=== PATIENT | female | born 1985 | race Caucasian/White ===

== ENCOUNTER 2025-02-17 22:00 | Emergency (ER) | payer OTHER, SELFPAY ==
[2025-02-17 22:03] VITALS: BP 132/84
[2025-02-17 22:27] LABS: Urine Character Clear (Clear)
[2025-02-17 22:27] LABS: Hematocrit 39.0 % (37.0-47.0); Hemoglobin 13.3 g/dL (12.0-16.0); Mean Corp Hgb Conc. 34.1 g/dL (33.0-37.0); Mean Corpuscular Volume 87.6 fL (81.0-99.0); Nucleated Red Blood Cells % 0 %; Platelet Count 240 10^3/uL (130-400); Red Cell Dist. Width 13.2 % (11.5-14.5)
[2025-02-17 22:37] LABS: HCG, Serum Qualitative Screen Negative
[2025-02-17 22:40] LABS: ALT (SGPT) 18 U/L (0-35); AST (SGOT) 25 U/L (14-36); Albumin 4.2 g/dl (3.5-5.0); Alkaline Phosphatase 60 U/L (38-126); Blood Urea Nitrogen 17 mg/dl (7-17); Calcium 9.2 mg/dl (8.4-10.2); Carbon Dioxide 28 mmol/L (22-30); Chloride 100 mmol/L (98-107); Glucose 96 mg/dl (70-99); Potassium 4.2 mmol/L (3.5-5.1); Sodium 133 mmol/L (135-145); Total Protein 7.4 g/dl (6.3-8.2); eGFR > 60.00
--- NOTE | 2025-02-18 01:44 | ED.GENMED ---
History of Present Illness
General
Chief Complaint: Flank Pain
Source: patient
Exam Limitations: none
Time Seen by Provider: 02/18/25 01:40
Nursing documentation reviewed up to this point in time: agreed with
History of Present Illness
History of Present Illness:
Note:
CHIEF COMPLAINT(S)
back pain.
HISTORY OF PRESENT ILLNESS
The patient is a 39-year-old female with no pmh presenting with back pain, which she describes as feeling like 'someone is punching me with the back of a baseball bat.� The symptoms began on Sunday around 7-8 PM. Initially, she felt nauseous while
watching television. She experienced the worst pain while lying down, comparing it to being 'stabbed.' On all fours, she attempted to relieve the discomfort. On Sunday, she remained uncomfortable throughout the day at work, unable to find relief in
any position. The pain was somewhat less severe today, prompting her to initially consider not seeking medical attention, but it then worsened significantly and she generally felt ill. The pain has alternated between sides and occasionally shoots to
the front, but there is no current anterior pain. She denies any radiation down her leg, fever, burning with urination, hematuria, or prior history of kidney stones or kidney infection. The patient reports no recent heavy lifting or specific event
triggering the pain. She experienced nausea and gagging initially, but these symptoms have since resolved.
REVIEW OF SYSTEMS
- Constitutional: Denies fever.
- Genitourinary: Denies dysuria, hematuria, or UTI symptoms.
- Gastrointestinal: Initial nausea, resolved.
PHYSICAL EXAM
General: Alert, no acute distress.
Skin: Warm, dry.
Head: Normocephalic, atraumatic.
Neck: Supple, trachea midline.
Eyes, Ears, Nose, Mouth, and Throat: Oral mucosa moist.
Cardiovascular: Normal peripheral perfusion, no edema.
Respiratory: Respirations are non-labored.
Gastrointestinal: Abdomen non-distended. Non-tender to palpation. Minimal right CVA tenderness.
Back: No midline spinal tenderness.
Musculoskeletal: Normal range of motion, normal strength.
Neurological: Alert and oriented to person, place, time, and situation, no focal neurological deficits observed.
Psychiatric: Cooperative, appropriate mood and affect.
PLAN
1. Order a CT scan to evaluate for potential kidney stones or signs of kidney infection.
2. Administer ketorolac intravenously for pain relief.
3. Consider a 10-day course of antibiotics for presumed kidney infection, even if CT results are normal, given flank pain and abnormal urinalysis.
DIFFERENTIAL DIAGNOSIS
The Differential Diagnosis includes, in no particular order and is not limited to:
1. Musculoskeletal back pain
2. Kidney infection (pyelonephritis)
3. Nephrolithiasis (kidney stones)
4. Lumbar strain or sprain
5. Disc herniation
6. Urinary tract infection
7. Appendicitis
8. Ovarian cysts
9. Sacroiliitis
10. Lumbar radiculopathy.
Disposition:
SUMMARY OF ENCOUNTER
A 39-year-old female presented to the emergency department with right-flank pain and nausea. On examination, she appeared well and in no acute distress. The abdominal examination was soft and non-tender with minimal right-sided costovertebral angle
tenderness. Urinalysis was concerning for infection, showing the presence of bacteria, leukocyte esterase, white blood cells, and blood. A CT scan revealed ureteral inflammation without an obstructing renal stone and mild bladder wall thickening,
suggesting an ascending urinary tract infection.
DISPOSITION
Discharge.
ASSESSMENT
Right-flank pain with findings suggestive of an ascending urinary tract infection.
PLAN
Initiate a 10-day course of cefpodoxime for the presumed urinary tract infection. Discussed strict return precautions to the ER, such as fever or worsening symptoms. The patient will follow up with primary care for reevaluation.
INDEPENDENT REVIEW OF LABS AND INTERPRETATION OF TESTS
My independent review of urinalysis indicates presence of bacteria, leukocyte esterase, white blood cells, and blood. My independent interpretation of the CT scan shows ureteral inflammation without obstructing renal stone and mild bladder wall
thickening.
FOLLOW-UP INSTRUCTIONS
The patient will follow up with primary care for reevaluation.
MEDICATION RECONCILIATION
Initiated a 10-day course of cefpodoxime.
MEDICAL DECISION MAKING
- Number and Complexity of Problems Addressed: Right-flank pain possibly due to a urinary tract infection. Differential diagnosis includes musculoskeletal back pain, kidney infection (pyelonephritis), nephrolithiasis (kidney stones), lumbar strain
or sprain, disc herniation, urinary tract infection, appendicitis, ovarian cysts, sacroiliitis, and lumbar radiculopathy.
- Data:
Category 1: My independent interpretation of the CT scan.
- Risk: Prescription drug management with cefpodoxime. Consideration of Admission/Observation: Escalation of care including admission/observation was considered given the complexity and risk of the patients presenting complaint, exam findings,
and/or their underlying comorbidities. However, ultimately, I feel the patient is safe for outpatient management with close follow-up. Reasoning: Work-up reassuring, does not reveal any acute life/organ-threatening processes, patients symptoms well
controlled upon reevaluation, reexamination is reassuring, vitals are stable, patient agreeable with discharge, reliable for follow-up.
DIAGNOSIS
Ascending urinary tract infection. ICD-10: N39.0 (Urinary tract infection, site not specified)
Developing pyelonephritis
Past History
Past History
ED Past Medical History: None
ED Past Surgical History: None
Social History
Tobacco: Non-smoker
Alcohol: Occasional
Drug: Marijuana
Personal: Single
Living: with family
Employment: Employed
Family History
Family History: Unable to obtain
Phy Exam
Physical Exam
Physical Exam:
see hpi
Course
Orders/Labs/Results
Orders:
Orders
02/17/25 22:08
Test Result ONCE
02/17/25 22:13
Complete Blood Count/With Diff Urgent
Comprehensive Metabolic Panel Urgent
HCG, Serum Qualitative Screen Urgent
Lipase Urgent
Comment: ADD ON
02/17/25 22:18
Urinalysis Reflex To Culture Urgent
Date Specimen was Collected: 02/17/25
Time Specimen was Collected: 22:08
Urine Microscopic Reflex Cult Urgent
Urine Culture Urgent
CHRISTOPHER Source: U
Specimen Description:
Date Specimen was Collected: 02/17/25
Time Specimen was Collected: 22:08
02/18/25 01:51
0.9% Sodium Chloride 500 ml [Nss] 500 ml IV BOLUS
Ketorolac [Toradol] 15 mg IV NOW STA
02/18/25 01:52
CT Abd/pelvis W Iv Cont Urgent
Comment:
Reason For Exam: flank pain, abdominal pain
02/18/25 01:53
Add On- LAB Urgent
Tests Added?: lipase
Abnormal Lab Results
02/17/25 02/17/25
22:13 22:18
WBC 11.5 H 10^3/uL
(4.8-10.8)
Absolute Neuts (auto) 7.8 H 10^3/uL
(1.4-6.5)
Absolute Monos (auto) 1.3 H 10^3/uL
(0.1-0.6)
Lymphocytes % 17.2 L %
(20.5-51.1)
Monocytes % 10.9 H %
(1.7-9.3)
Sodium 133 L mmol/L
(135-145)
Ur Occult Blood Reflex 2+ A
(Negative)
Leukocyte Esterase Rfl 2+ A
(Negative)
Urine RBC 3-6 A /HPF
(0-2)
Urine WBC (Reflex) 11-15 A /HPF
(0-5)
Urine Bacteria (Reflex) Few A
(Negative)
Urine Albumin (Reflex) 2+ A
(Neg - Trace)
02/17/25 22:13
02/17/25 22:13
Vital Signs
Initial and Last Documented VS:
Initial Vital Signs
Temp Pulse Resp BP Pulse Ox
98.1 F 88 18 132/84 99
02/17/25 22:03 02/17/25 22:03 02/17/25 22:03 02/17/25 22:03 02/17/25 22:03
Last Documented Vital Signs
Temp Pulse Resp BP Pulse Ox
98.1 F 75 18 113/63 99
02/17/25 22:03 02/18/25 04:30 02/18/25 04:30 02/18/25 04:30 02/18/25 04:30
*Pulse Oximetry
SaO2: 99
Oxygen Mode of Delivery: Room air
Patient hypoxic: no
*Critical Care Note
Total Time (30-74mins, 75-104mins- exclusive of procedures): Not Applicable
ED Attending Note
-
Portions of this chart may have been created with voice recognition software.� Occasional wrong word or��sound alike� substitutions may have occurred due to the inherent limitations of voice recognition software.
Discharge Plan
Departure
Patient Disposition: Home (Routine Discharge)
Date of Disposition: 02/18/25
Time of Disposition: 05:08
Patient with high blood pressure during this ER visit?: Yes
Condition: Good
Discharge Problem:
Pyelonephritis
Instructions: Urinary tract infection (DC), BLOOD PRESSURE
Prescriptions:
New
cefpodoxime 200 mg tablet
200 mg PO BID 10 Days Qty: 20 0RF
No Action
norethindrone ac-eth estradiol [06/16 (21)] 1 TAB tablet
1 tab PO DAILY
methylprednisolone [Medrol (Allen)] 4 MG tablets,dose pack
4 tab PO . DIRECT Qty: 1 0RF
diazepam [Valium] 5 MG tablet
5 mg PO TID PRN (Reason: Pain, spasm) Qty: 10 0RF
Referrals:
Calixto Rocha, DO [Family Provider]
Stand Alone Forms: Return to Work
Activity Restrictions/Additional Instructions:
Antibiotic called cefoxitin has been sent to your pharmacy. Please take 1 tablet twice daily for 10 days.
Please take 600 to 800 mg of ibuprofen every 6 hours as needed. Please do not exceed 3200 mg a day.
PLEASE RETURN TO THE ER SHOULD YOU DEVELOP FEVERS, ACUTE WORSENING OF PAIN, INTRACTABLE NAUSEA OR VOMITING, CHEST PAIN, SHORTNESS OF BREATH, LIGHTHEADEDNESS, DIZZINESS, OR ANY OTHER SIGNS OR SYMPTOMS WORRISOME TO YOU.
Interventions
Interventions:
*Risk Screen - Suicide Last Done: 02/17/25 22:03
*General Assessment Last Done: 02/17/25 22:03
*Neglect/Abuse Screening Last Done: 02/17/25 22:03
*ED COVID-19 Vaccine History Last Done: 02/17/25 22:03
*Nursing Disposition Last Done: 02/18/25 05:24
VC-Kevkce-Yllpskofgn Assessment Last Done: 02/18/25 03:00
ED-Female Genitourinary Assessment Last Done: 02/18/25 03:00
Discharge Date and Time
Discharge Date/Time: 02/18/25 05:32
Print Language: LAO
[2025-02-18] MEDS: TORADOL 15 MG IV (02:10)
[2025-02-18] MEDS: NSS 500 IV (02:10)
[2025-02-18 02:30] LABS: Lipase 104 U/L (23-300)
[2025-02-18 04:30] VITALS: BP 113/63
== END 2025-02-18 05:32 | disposition home or self-care (01) ==
LOC: EMR 22:00
PROVIDERS: Emergency Medicine; EMERGENCY PHYSICIAN Student in an Organized Health Care Education/Training Program; FAMILY PHYSICIAN Internal Medicine
DX: N12 Tubulo-interstitial nephritis, not specified as acute or chronic (principal); N32.89 Other specified disorders of bladder; R03.0 Elevated blood-pressure reading, without diagnosis of hypertension
CPT/HCPCS: 99284; 96374; 96361; 74177; 80053; 81003; 81015; 83690; 84703; 85025; 87077; 87086; Q9967